=== PATIENT | male | born 1985 | race Caucasian/White ===

== ENCOUNTER 2016-08-08 20:02 | Inpatient (IN) ==
[2016-08-08] MEDS ORDERED: ONDANSETRON 4 MG/2 ML VIAL IV STA (21:35)
[2016-08-08] MEDS ORDERED: KETOROLAC 30 MG/1 ML VIAL IV STA (21:35)
[2016-08-08] MEDS ORDERED: HYDROmorphone 2 MG/1 ML VIAL IV STA (21:35)
[2016-08-08] MEDS ORDERED: SODIUM CHLORIDE 0.9% 500 ML IV STA (21:35)
[2016-08-08] MEDS ORDERED: PANTOPRAZOLE 40 MG VIAL IV STA (21:35)
[2016-08-08] MEDS ORDERED: ALUM/MAG/SIMETH/LIDO VISC 1:1 30 ML BOTTLE PO STA (21:35)
[2016-08-08] MEDS ORDERED: ONDANSETRON 4 MG/2 ML VIAL ONE (21:51)
[2016-08-08] MEDS ORDERED: ALUM/MAG/SIMETH/LIDO VISC 1:1 30 ML BOTTLE PO ONE (21:51)
[2016-08-08] MEDS ORDERED: PANTOPRAZOLE 40 MG VIAL IV ONE (21:51)
[2016-08-08] MEDS ORDERED: KETOROLAC 30 MG/1 ML VIAL ONE (21:51)
[2016-08-08] MEDS ORDERED: HYDROmorphone 2 MG/1 ML VIAL ONE (21:51)
--- NOTE | 2016-08-08 22:03 | XRay Report ---
History is abdominal pain Chest, one view The heart is normal in size. Hilar contours felt to be related to vasculature There is distention visualized stomach with air and fluid level. There is mild nonspecific elevation left diaphragm. No consolidative infiltrates are seen. Impression: Distention of the visualized stomach PROCEDURE INTERPRETED AT [facility] DEPARTMENT OF RADIOLOGY Final Report Signed by: Dr. Caitlyn Hurtado
--- NOTE | 2016-08-08 22:05 | XRay Report ---
Abdomen, 2 views History is abdominal pain There is prominent distention of the stomach with air and a large fluid level There is air throughout the small and large bowel with multiple small scattered air-fluid levels diffusely no free air or organomegaly seen Impression: 1. Prominent distention of the stomach 2. Diffuse small air-fluid levels likely a mild ileus PROCEDURE INTERPRETED AT [facility] DEPARTMENT OF RADIOLOGY Final Report Signed by: Dr. Caitlyn Hurtado
--- NOTE | 2016-08-08 22:07 | Emergency Department Note ---
Jose Martin Fraser Sierra, am scribing for, and in the presence of, Carlos Sotelo MD 21:38. Deepak Fraser Charles R, MD, personally performed the services described in this documentation, ascribed by Sary Philippe in my presence, and it is both accurate and complete . Arrival - Arrival Chief Complaint: Nausea/Vomiting/Diarrhea Stated Complaint: Stomach pain with vomiting ED Nursing Triage Note: PT TO TRIAGE WITH ABD PAIN, N/V/D, STARTED APPROX 4 HRS AGO. PT STATES DRY HEAVING, BELCHING LOUDLY AND SMELLS VERY SOUR, DIARREAH IS GREEN AND LIQUID. Mode of Arrival: Ambulatory Limitations: No Limitations Source: Patient, Family Time Seen by Provider: 08/08/16 21:25 - History of Present Illness HPI Narrative: Pt is a 31 y/o male that came to the ED with c/o abdominal pain with diarrhea and belching that began 4 hours ago. Pt reports when he lays down he gets hot flashes and when he sits up he either has diarrhea or belching. He states this came on suddenly. Family reports he ate cereal and peas and ham earlier today. Pt states he does have body aches but denies fever or gas. Pt denies previous diverticulitis or any bowel issues. Pt also denies taking antibiotics within the last 2 weeks. No other complaints/pain in ED. Onset (ago): hour(s) Consistency: constant Severity: mild, moderate Severity scale (1-10): 3 Allergies/Adverse Reactions: Allergies Allergy/AdvReac Type Severity Reaction Status Date / Time No Known Allergies Allergy Verified 08/08/16 20:35 Home Medications: Home Medications Medication Instructions Recorded Confirmed Type No Known Home Medications [No 08/08/16 08/08/16 History Known Home Medications] Review of System - Review of System 12 point system: reviewed and no additional remarkable complaints except as stated - Review of System Constitutional: Present: other (hot flashes when laying down). Absent: fever Respiratory: Absent: cough Cardiovascular: Absent: chest pain, palpitations Gastrointestinal: Present: abdominal pain, nausea, diarrhea, other (belching excessively). Absent: vomiting Musculoskeletal: Absent: arm pain, back pain, leg pain, neck pain Skin: Absent: rash Psychiatric: Absent: anxiety Medical,Surgical,& Family Hx - Social History Smoking Status: Current every day smoker Frequency of Alcohol Use: None Type of Drug Use: None Exam Vital Signs: Vital Signs Temperature 97.8 F 08/08/16 20:30 Pulse Rate 89 08/08/16 23:10 Respiratory Rate 2 L 08/08/16 23:10 Blood Pressure 120/62 08/08/16 23:10 O2 Sat by Pulse Oximetry 98 08/08/16 23:10 - General General appearance: alert, in no apparent distress - Head Head exam: Present: atraumatic, normocephalic - Eye Eye exam: Present: PERRL, EOMI - ENT ENT exam: Present: mucous membranes moist. Absent: mucous membranes dry - Neck Neck exam: Present: full ROM. Absent: tenderness - Chest Chest inspection: Present: symmetric chest wall rise. Absent: tenderness - Respiratory Respiratory exam: Present: normal lung sounds bilaterally. Absent: respiratory distress - Cardiovascular Cardiovascular exam: Present: tachycardia, normal heart sounds - Abdominal Exam Abdominal exam: Present: distention (bloated abdomen), tenderness (diffusely tender all over), hyperactive bowel sounds - Extremities Exam Extremities exam: Present: full ROM. Absent: tenderness - Back Exam Back exam: Present: full ROM. Absent: tenderness - Neurological Exam Neurological exam: Present: alert, oriented X3, CN II-XII intact. Absent: motor sensory deficit - Psychiatric Psychiatric exam: Present: normal affect, normal mood - Skin Skin exam: Present: warm, dry Course - Consultations Consultation #1: Dr. Chase will admit patient Time: 00:25 Results - Labs CBC & BMP: 08/08/16 21:32 08/08/16 21:32 Lab Results: I have reviewed the patients labs Labs: Laboratory Tests 08/08/16 08/08/16 21:32 21:32 WBC 22.7 H MPV 9.1 L Neut % (Auto) 92.8 H Lymph % (Auto) 3.9 L Neut # (Auto) 21.1 H Lymph # (Auto) 0.9 L Sodium 146 H Chloride 111 H Anion Gap 15.4 H Glucose 111 H Albumin/Globulin Ratio 1.0 L - Diagnostic Findings Procedure: Abdominal x-ray: report reviewed by me (1. Prominent distention of the stomach. 2. Diffuse small air-fluid levels likely a mild ileus.), Chest x- ray: report reviewed by me (Distention of the visualized stomach) Disposition Clinical Impression: Gastroenteritis, Leukocytosis, Enteritis Case discussed with: patient, patient's family Disposition: Still a Patient Condition: Stable Time of Disposition: 00:25
[2016-08-08 22:21] LABS: Basophils % 0.1 % (0.0-0.8); Eosinophils % 0.2 % (0.00-10.9); Hematocrit 44.2 VOL% (42.0-52.0); Immature Granulocytes % 0.4 %; Immature Granulocytes Absolute 0.08 #; Lymphocytes # 0.9 10*3/uL (1.4-4.0); Lymphocytes % 3.9 % (21.2-54.2); Mean Corpuscular HGB Conc 33.9 GM/DL (32-36); Mean Corpuscular Hemoglobin 31 PG (27-34); Mean Corpuscular Volume 91.7 FL (87-102); Mean Platelet Volume 9.1 FL (9.6-12.0); Monocytes # 0.6 10*3/uL (0.11-0.8); Monocytes % 2.6 % (1.7-12.7); Neutrophils # 21.1 10*3/uL (1.4-7.4); Neutrophils % 92.8 % (38.7-73.9); Platelet Count 292 10*3/uL (130-400); Red Blood Count 4.82 10*6/uL (3.8-5.5); Red Cell Distribution Width 11.9 % (9.3-17.3); White Blood Count 22.7 10*3/uL (4.5-13.71)
[2016-08-08 22:40] LABS: Alanine Aminotransferase 29 U/L (16-61); Albumin 3.7 G/DL (3.4-5.0); Alkaline Phosphatase 71 U/L (45-117); Amylase 111 U/L (25-115); Aspartate Amino Transferase 14 U/L (0-37); Bilirubin,Total < 0.39 MG/DL (0.2-1.0); Blood Urea Nitrogen 14 MG/DL (7-18); Calcium 8.7 MG/DL (8.5-10.1); Glucose 111 MG/DL (74-106); Magnesium 2.1 MG/DL (1.8-2.4); Osmolality,Calculated 291.6 MOS/KG (273-304); Potassium 4.4 MMOL/L (3.5-5.1); Sodium 146 MMOL/L (136-145); Total Protein 7.1 G/DL (6.4-8.3); Troponin I Only < 0.015 NG/ML (0.00-0.045)
[2016-08-08 23:12] LABS: Band Neutrophils 1 % (0-10); Lymphocytes 3 % (20-55); Platelet Estimate Normal; Segmented Neutrophils 95 % (50-85); Total Cells Counted 100
[2016-08-09] MEDS ORDERED: metroNIDAZOLE INJ 500 MG in PREMIX 1 EACH IV STA (00:13)
[2016-08-09] MEDS ORDERED: CIPROFLOXACIN INJ 400 MG in PREMIX 1 EACH IV STA (00:13)
[2016-08-09] MEDS ORDERED: metroNIDAZOLE 500 MG/100 ML PREMIX IV ONE (00:20)
[2016-08-09] MEDS ORDERED: CIPROFLOXACIN 400 MG/200 ML PREMIX IV ONE (00:20)
--- NOTE | 2016-08-09 00:35 | Hospitalist History & Physical ---
Assessment and Plan (1) Gastroenteritis Status: Acute Current Visit: Yes (2) Leukocytosis Status: Acute Current Visit: Yes (3) Enteritis Status: Acute Assessment and plan: Plan for this patient #1 admit the patient our service #2 IV Cipro and Flagyl #3 bowel rest #4 KUB in the morning #5 stool studies Current Visit: Yes History of Present Illness Chief complaint: nausea diarrhea belching History of present illness: Mr. Carrera is a 31 year old male with no soup significant medical history was his normal state of health till today. Patient 8 supper and laid down. He developed a lot of belching. [place] like his belly was swelling up. He just said he felt bad all over. He had about 3 episodes of diarrhea. Reports being very nauseated. He had this happen to him before about 7 months ago and he had to be hospitalized at that time. It took 3 days for his symptoms to resolve. Patient had a CT scan of his abdomen that showed a probable moderate small bowel ileus with changes of gastroenteritis and possibly acute distal enteritis early partial and distal small bowel obstruction cannot be excluded small bowel follow-through correlation may be useful if indicated significant gastric distention with air fluid levels. Patient has elevated white count I was consulted to admit the patient Home Medications Medication Instructions Recorded Confirmed Type No Known Home Medications [No 08/08/16 08/08/16 History Known Home Medications] Allergies Allergy/AdvReac Type Severity Reaction Status Date / Time No Known Allergies Allergy Verified 08/08/16 20:35 Medical,Surgical,& Family Hx - Medical History Gastrointestinal: History of: GI Problems - Surgical History Surgical History: noncontributory - Family History Family History: Reports;: Family Cancer, Family Heart Disease - Social History Smoking Status: Current every day smoker Frequency of Alcohol Use: None Type of Drug Use: None 12 point system: reviewed and no additional remarkable complaints except as stated Exam - Constitutional Vitals: Period Temp Pulse Resp BP Sys/Rodrigez Pulse Ox Last 24 Hr 97.8 F 78-89 2-20 110-120/62-88 98-100 General appearance: normal weight, no acute distress - Head Head exam: Present: normocephalic, atraumatic - Eye Eye exam: Present: EOMI Pupils: Present: SABINE - ENT ENT exam: Present: normal exam - Neck Neck exam: Present: normal inspection - Respiratory Respiratory exam: Present: clear to auscultation bilaterally - Cardiovascular Cardiovascular exam: Present: regular rate and rhythm - GI/Abdominal GI/Abdominal exam: Present: distended, hyperactive bowel sounds, tenderness. Absent: rebound - Extremities Exam Extremities exam: Present: normal inspection - Back Exam Back exam: Present: normal inspection - Neurological Exam Neurological exam: Present: alert, oriented X3 - Psychiatric Psychiatric exam: Present: normal affect - Skin Skin exam: Present: normal color Results - Labs CBC & BMP: 08/08/16 21:32 08/08/16 21:32 Quality Measures - Stroke Onset of Symptoms Date: 08/08/16
[2016-08-09] MEDS ORDERED: PROMETHAZINE 25 MG/1 ML VIAL IM PRN (00:41)
[2016-08-09] MEDS ORDERED: ONDANSETRON 4 MG/2 ML VIAL IV PRN (00:41)
[2016-08-09] MEDS: SODIUM CHLORIDE 0.9% 1,000 ML IV SCH ×2 (03:03→08:43)
--- NOTE | 2016-08-09 06:30 | CT Report ---
CT abdomen pelvis w con Indication: Generalized abdominal pain. CT ABDOMEN AND PELVIS WITH CONTRAST DLP: 673 mGy*cm Comparison: None Technique: Axial CT images of the abdomen and pelvis were obtained with IV contrast; Omnipaque 350, 100 cc. Oral contrast was not administered. Abdomen: Stomach is severely distended with air and ingested material. Small bowel distention bordering on dilation is present throughout the abdomen, with multiple air-fluid levels present throughout. Stool and gas is also present throughout colon, without being dilated. No obstructive lesion is shown but in the sigmoid colon, the colon is relatively decompressed and has a thickwalled appearance. No free fluid or free air. No pneumatosis identified on CT. The appendix is normal in size without inflammation. Small focal fatty infiltrate is present anterior right liver lobe. Liver is otherwise unremarkable. Gallbladder, pancreas, spleen, adrenal glands and kidneys are within normal limits. Normal heart size. Bibasilar atelectasis. Pelvis: Urinary bladder and prostate are within normal limits. Impression: Significant dilatation of the stomach with distention of small bowel and stool and gas in the colon. Sigmoid colon is thickwalled appearing. Suspect a diffuse gastroenteritis and/or colitis. Early SBO less likely but cannot fully be excluded. PROCEDURE INTERPRETED AT [facility] DEPARTMENT OF RADIOLOGY Final Report Signed by: Bryant Nolan M.D.
[2016-08-09 06:33] LABS: Basophils % 0.2 % (0.0-0.8); Eosinophils # 0.1 10*3/uL (0.0-0.87); Eosinophils % 0.5 % (0.00-10.9); Hematocrit 41.7 VOL% (42.0-52.0); Hemoglobin 13.6 GM/DL (14.0-18.0); Immature Granulocytes % 0.5 %; Lymphocytes # 1.2 10*3/uL (1.4-4.0); Lymphocytes % 5.9 % (21.2-54.2); Mean Corpuscular HGB Conc 32.6 GM/DL (32-36); Mean Corpuscular Hemoglobin 30 PG (27-34); Mean Corpuscular Volume 91.6 FL (87-102); Mean Platelet Volume 9.3 FL (9.6-12.0); Monocytes % 4.5 % (1.7-12.7); Neutrophils # 18.6 10*3/uL (1.4-7.4); Neutrophils % 88.4 % (38.7-73.9); Platelet Count 299 10*3/uL (130-400); Red Blood Count 4.55 10*6/uL (3.8-5.5); Red Cell Distribution Width 11.9 % (9.3-17.3); White Blood Count 21.1 10*3/uL (4.5-13.71)
[2016-08-09 06:54] LABS: Calcium 8.6 MG/DL (8.5-10.1); Osmolality,Calculated 290.4 MOS/KG (273-304); Potassium 4.3 MMOL/L (3.5-5.1)
[2016-08-09 07:01] LABS: Band Neutrophils 6 % (0-10); Hypochromasia 1+; Lymphocytes 4 % (20-55); Segmented Neutrophils 88 % (50-85); Total Cells Counted 100
[2016-08-09 07:02] LABS: Platelet Estimate Adequate
[2016-08-09] MEDS: HYDROmorphone 2 MG/1 ML VIAL IV PRN ×3 (07:38→21:42)
--- NOTE | 2016-08-09 08:24 | XRay Report ---
XR KUB Indication: Abdominal pain. Abdomen 2 views: Gaseous distention of the stomach and small bowel is present without dilatation. Normal quantity of stool and gas is shown in the colon. No free air. No masses or abnormal calcifications. IV contrast is present in the urinary bladder. Impression: Gaseous prominence the stomach and small bowel is present, not dilated. No evidence of bowel obstruction. This represents significant improvement when compared to the plain film abdomen from yesterday at 2149 hrs., and the CT obtained yesterday at 2311 hrs. PROCEDURE INTERPRETED AT [facility] DEPARTMENT OF RADIOLOGY Final Report Signed by: Bryant Nolan M.D.
[2016-08-09] MEDS: metroNIDAZOLE INJ 500 MG in PREMIX 1 EACH IV SCH ×2 (08:43→16:28)
--- NOTE | 2016-08-09 12:58 | Gastrointestinal Consult Note ---
Assessment and Plan (1) Gastroenteritis Status: Acute Assessment and plan: This patient has what appears to be an ileus throughout his small bowel along with dilation of the small bowel possibly early partial small bowel obstruction given the recurrent nature of his symptoms this seems doubtful. We will check him for upper Crohn's disease and I will do a serology for p-ANCA versus ASCA given the elevations in his white blood cell count in the recurrent nature of his illness to look for inflammatory bowel disease. We will likely take small bowel biopsies to look for celiac sprue as well. This being said I strongly suspect that he actually has recurrent gastroenteritis. I'm not sure that a gastric emptying study witnessed a be helpful especially after receiving narcotics given the patient's elevated white blood cell count which typically does not occur with gastroparesis, unless there is concomitant and aspiration pneumonia. Current Visit: Yes (2) Leukocytosis Status: Acute Assessment and plan: This speaks to some infectious process. Stool cultures are pending, we will see what his white count does as he continues to get his antibiotics including Cipro and Flagyl. Endoscopic evaluation is pending as well. We will likely do a colonoscopy as an outpatient. Current Visit: Yes (3) Family hx of colon cancer Status: Acute Assessment and plan: This patient has a strong family history of colon cancer with father in his 40s and paternal grandfather in his 50s by report. We will arrange for colonoscopy to occur as an outpatient I am concerned that he has some thickening in the sigmoid seen but with his elevated white blood cell count we need to make sure this is not diverticulitis and colonoscopy in the short-term may run the risk of perforation if this is the source of the elevated white blood cell count. That being said with the patient's nausea doubt that he would tolerate a prep right now. We'll arrange this for 4-[address] as an outpatient will most likely. Risks of upper endoscopy were already discussed with the patient and his girlfriend at the bedside these include but are not limited to: Bleeding, infection, perforation, cardiac and pulmonary compromise. Current Visit: Yes History of Present Illness Chief complaint: nausea without vomiting, apparent gastroenteritis/ileus. WBC 22K History of present illness: Mr. Carrera is a 31 year old male who has had several episodes (states 8) of 3- 4 days of nausea without vomiting/abdominal pain/diarrhea in the epigastric/ periumbilic regions and bloating with diarrhea. These frequently becomes so severe he must be treated in the hospital x 3 with the last of these episodes occurring several months ago. The patient is concerned if there is a family history of colon cancer in his father and paternal grandfather. The patient states that his father was in his 40s when he was diagnosed with colon cancer. His mother has a history of IBS. I was able to talk with his "common law" who is out of [place] and verifies the patient's story. He has never been worked up by gastroenterology and has never had a scope up to this point. His typical bowel movements are once daily. The episodes involve nausea without vomiting with a lot of bloating and belching and some increasing diarrhea and abdominal pain throughout. CT scan done demonstrates what appears to be gastric distention with air-fluid levels as well as a small bowel ileus consistent with gastroenteritis, early small bowel obstruction cannot be completely ruled out. The sigmoid colon also appeared to have a thickened wall incidentally. The patient does have an elevated white blood cell count to 22.7K consistent with gastroenteritis versus colitis, oddly the patient has not mounted a temperature. Typically his appetite is quite good. He is currently getting Cipro and Flagyl. Stool studies are pending. Home Medications Medication Instructions Recorded Confirmed Type No Known Home Medications [No 08/08/16 08/08/16 History Known Home Medications] Allergies Allergy/AdvReac Type Severity Reaction Status Date / Time No Known Allergies Allergy Verified 08/08/16 20:35 Medical,Surgical,& Family Hx - Medical History Gastrointestinal: History of: GI Problems - Family History Family History: Reports;: Family Cancer (father,grandfather, and great grandfather had colon cancer), Family Heart Disease - Social History Smoking Status: Current every day smoker Frequency of Alcohol Use: None Type of Drug Use: None Review of systems: Constitutional: Negative for fever, chills, but positive for nausea, without vomiting Eyes: Denies dry eyes, and scleral icterus HENT: Denies headaches Cardiovascular: Denies acute chest pain and claudication Respiratory: Denies shortness of breath, wheezing, and difficulty breathing, denies cough Gastrointestinal: As noted in the HPI Genitourinary: Denies dysuria and hematuria Neurologic: Denies vision loss, and loss of sensation Musculoskeletal: Denies joint swelling, joint stiffness, and muscular weakness Psychiatric: Denies depression and jennifer symptoms Heme-Lymph: Denies easy bruising, lymph node enlargement or tenderness, night sweats, excessive bleeding Allergies-immunologic: Denies pruritus and rhinorrhea Exam - Constitutional Vitals: Period Temp Pulse Resp BP Sys/Rodrigez Pulse Ox Last 24 Hr 97.8 F-98.8 F 64-91 16-20 112-145/72-83 96-100 General appearance: mild distress Exam: Constitutional: Well-developed, well-nourished, alert, and in no acute distress Head and face: Head: Normocephalic atraumatic Eyes: Conjunctiva without injection, no gross scleral icterus, pupils equal and round bilaterally Ears: Intact to conversation in both ears Nose: External appearance is normal, nares patent Mouth: Oral mucous membranes moist without erythema dentition noted to be without erosion Neck: Normal appearance, no masses or tenderness, trachea midline Thyroid: Gland midline and appropriate size for age Respiratory: Normal respiratory effort, clear to auscultation without wheezes, rhonchi or rales Cardiovascular: Regular rate and rhythm, normal S1, S2, the exam is without rubs, murmurs or gallops. Gastrointestinal: Moderate tenderness to palpation epigastric region greater than bilateral lower quadrants/periumbilical area., normal active bowel sounds, tone normal without rigidity or guarding, no masses present, no hepatomegaly, no spleen tip felt. Rectal exam shows excellent tone, there is a hemorrhoid which is located at 9 o'clock with irritation, stool is guaiac negative. Lymphatic: Neck without adenopathy, axilla without lymphadenopathy present Musculoskeletal: Right and left lower extremities without evidence of edema Skin and subcutaneous tissue: No rashes or ulcerations noted, normal skin turgor, digits and nails without clubbing/cyanosis/deformities. Neurologic: The patient is grossly oriented to person place and time, cranial nerves show tongue movements are normal with normal tongue extrusion midline, light touch sensation is intact. Psychiatric: No hallucinations or delusions are present, does not appear depressed Results - Labs CBC & BMP: 08/09/16 06:05 08/09/16 06:05 Quality Measures - Stroke Onset of Symptoms Date: 08/08/16
[2016-08-09] MEDS ORDERED: ALUM/MAG/SIMETH/LIDO VISC 1:1 30 ML BOTTLE PO ONE (13:06)
[2016-08-09] MEDS: CIPROFLOXACIN INJ 400 MG in PREMIX 1 EACH IV SCH (13:07)
--- NOTE | 2016-08-09 13:08 | Hospitalist Progress Note ---
Assessment and Plan (1) Gastroenteritis Status: Acute Assessment and plan: Continue Cipro IV collect stools for C. difficile, monitor white count carefully. Current Visit: Yes (2) Chronic nausea Status: Acute Assessment and plan: gastric emptying study Current Visit: Yes (3) Hypernatremia Status: Acute Assessment and plan: 1/2 ns at 125 ml/hr Current Visit: Yes (4) Epigastric abdominal tenderness Status: Acute Assessment and plan: protonix iv bid, Dr Tong to see. Current Visit: Yes Hospitalist: Subjective Interval history: Patient is having epigastric tenderness. He reports having chronic nausea and has 8 of these episodes. I will get a gastric emptying study on him today and have GI see him. Nothing that he told me that he ate yesterday particularly some suspicious. Exam - Constitutional Vitals: Period Temp Pulse Resp BP Sys/Rodrigez Pulse Ox Last 24 Hr 97.8 F-98.8 F 64-91 16-20 112-145/72-83 96-100 Exam: Heart Rate-[RRR] Lungs-[CTAB] GI-[+bs soft, epigastric tenderness.] Ext-[no edema] General-does not look acutely ill. Neuro motor 5 out of 5, alert and oriented 3 Psych normal mood and affect Results - Labs CBC & BMP: 08/09/16 06:05 08/09/16 06:05 Lab Results: I have reviewed the past 24 hour labs Labs: Blood cultures 2 pending - Diagnostic Findings Procedure: KUB x-ray: report reviewed by me (Gaseous distention of stomach.), CT Abdomen and Pelvis: report reviewed by me (Diffuse gastroenteritis versus colitis), X-ray: report reviewed by me (Gastric emptying study pending) Quality Measures - Stroke Onset of Symptoms Date: 08/08/16
[2016-08-09] MEDS: SODIUM CHLORIDE 0.45% 1,000 ML IV SCH (13:38)
[2016-08-09] MEDS: PANTOPRAZOLE 40 MG VIAL IV SCH ×2 (13:39→20:47)
--- NOTE | 2016-08-09 15:42 | Nuclear Medicine Report ---
Gastric emptying study. Indication: Gastroparesis. No prior studies. Following the oral administration of 500 ?Ci technetium 99m sulfur colloid administered p.o. in scrambled eggs exam which, imaging was performed over the stomach for 257 minutes. T. half-time, 250 minutes. At one hour, no emptying had occurred. At 1.5 hours, no imaging had occurred. At 4 hours, 50% emptying had occurred. Impression: Findings consistent with significantly delayed gastric emptying. PROCEDURE INTERPRETED AT [facility] DEPARTMENT OF RADIOLOGY Final Report Signed by: Dr. Anu Hurtado
[2016-08-10] MEDS: METOCLOPRAMIDE 10 MG/2 ML VIAL IV SCH ×2 (00:24→06:00)
[2016-08-10] MEDS: CIPROFLOXACIN INJ 400 MG in PREMIX 1 EACH IV SCH (00:24)
[2016-08-10] MEDS: SODIUM CHLORIDE 0.45% 1,000 ML IV SCH ×2 (00:24→08:20)
[2016-08-10] MEDS: metroNIDAZOLE INJ 500 MG in PREMIX 1 EACH IV SCH ×2 (02:38→08:20)
[2016-08-10 06:46] LABS: Basophils % 0.3 % (0.0-0.8); Eosinophils # 0.3 10*3/uL (0.0-0.87); Eosinophils % 2.6 % (0.00-10.9); Immature Granulocytes % 0.4 %; Immature Granulocytes Absolute 0.04 #; Lymphocytes # 3.2 10*3/uL (1.4-4.0); Lymphocytes % 33.2 % (21.2-54.2); Mean Corpuscular HGB Conc 31.7 GM/DL (32-36); Mean Corpuscular Hemoglobin 30 PG (27-34); Mean Corpuscular Volume 94.5 FL (87-102); Mean Platelet Volume 9.5 FL (9.6-12.0); Monocytes # 0.5 10*3/uL (0.11-0.8); Monocytes % 5.2 % (1.7-12.7); Neutrophils # 5.6 10*3/uL (1.4-7.4); Neutrophils % 58.3 % (38.7-73.9); Platelet Count 280 10*3/uL (130-400); Red Blood Count 4.34 10*6/uL (3.8-5.5); White Blood Count 9.5 10*3/uL (4.5-13.71)
[2016-08-10 07:34] VITALS: BP 108/56
[2016-08-10] MEDS: PANTOPRAZOLE 40 MG VIAL IV SCH (08:20)
--- NOTE | 2016-08-10 11:07 | Discharge Summary ---
Hospital Course - Hospital Course Hospital Course: 31-year-old male presented with with diarrhea and nausea but no actual vomiting. His CT scan was suggestive of an ileus. On examination. He had epigastric tenderness and a white count of 21,000. He was treated for gastroenteritis with IV Cipro and Flagyl and IV fluids. Dr. Tong was concerned that patient may have inflammatory bowel disease and wanted to do an upper GI scope with small bowel biopsies. Dr. Tong also ordered P-Anca and ASCA. Patient also had a gastric emptying study yesterday which was delayed. He was started on Reglan IV. Was called by nursing this morning the patient had a medical emergency and had to leave. Nursing reports patient looked like he was in drug withdrawal. He was being belligerent to the nurses and his girlfriend. I was concerned that he was leaving AMA due to his elevated white count and we were supposed to do an upper endoscopy on him today. Also his gastric emptying study was positive and he did have gastroparesis but he would not wait long enough for me to come up and explain all of his results to him. I had offered to call in medications but he told us not to bother as his he would not pick them up or take them. Patient signed out AMA. - Time spent with patient Time with patient DS: Less than 30 minutes Diagnosis - Discharge Diagnosis (1) Gastroenteritis Status: Acute (2) Chronic nausea Status: Acute (3) Hypernatremia Status: Acute (4) Epigastric abdominal tenderness Status: Acute Discharge Plan - Discharge Data Disposition: Left Against Medical Advice - Discharge Medications No Action No Known Home Medications [No Known Home Medications] - Follow Up or Referral - Forms/Instructions Exam - Constitutional Vitals: Period Temp Pulse Resp BP Sys/Rodrigez Pulse Ox Last 24 Hr 97.7 F-98.5 F 53-69 18-20 102-112/55-81 95-98 Discharge Results Labs on day of discharge: Labs from last 24 hours 08/10/16 06:11 WBC 9.5 D RBC 4.34 Hgb 13.0 L Hct 41.0 L MCV 94.5 MCH 30 MCHC 31.7 L RDW 12.0 Plt Count 280 MPV 9.5 L Neut % (Auto) 58.3 Lymph % (Auto) 33.2 [place] % (Auto) 5.2 Eos % (Auto) 2.6 Baso % (Auto) 0.3 Neut # (Auto) 5.6 Lymph # (Auto) 3.2 [place] # (Auto) 0.5 Eos # (Auto) 0.3 Baso # (Auto) 0.0 Immature Gran % 0.4 Nucleated RBC % 0.0 Immature Gran # 0.04 Nucleated RBCs # 0.00 Preliminary micro results at discharge 08/09/16 01:19 Blood Culture - Preliminary Blood No growth at 1 day 08/09/16 00:52 Blood Culture - Preliminary Blood No growth at 1 day DS: Provider Date of admission: 08/09/16 00:41 Primary care physician: . No PCP Attending physician on admission: Cecy Davis MD Consults: 08/09/16 01:52 Consult to Dietitian [CONS] Routine Reason for Dietitian: Diet Recommendations 08/09/16 10:30 Consult to Physician [CONS] Routine Comment: severe epigastric pain, retching Consulting Provider: Juan José Tong Date Notified: 08/09/16 Time Notified: 14:25 Consult Notification Comment: aware Discharging clinician: Cecy Davis MD
== END 2016-08-10 07:51 | disposition left against medical advice (07) | DRG 392 ==
LOC: N.ED 20:02 → N.EDINP 08-09 00:41 → N.5E 08-09 01:30
PROVIDERS: ADMIT Internal Medicine; ATTEND Internal Medicine